=== PATIENT | female | born 1960 | race Caucasian/White ===

== ENCOUNTER 2019-08-06 15:58 | Inpatient (IN) ==
[2019-08-06] MEDS ORDERED: ZOFRAN INJ 4 MG VIAL IVP PRN (16:54)
[2019-08-06 17:13] VITALS: BMI 27.4
[2019-08-06] MEDS ORDERED: PREVNAR 13 IM ONE (17:13)
[2019-08-06] MEDS ORDERED: AFLURIA II4 or FLUARIX II4 IM ONE (17:13)
[2019-08-06] MEDS ORDERED: ROCEPHIN VIAL 1 GRAM ONE (18:05)
[2019-08-06] MEDS ORDERED: NS 100 ML IV + SPIKE MINIBAG* 100 ML IV ONE (18:05)
[2019-08-06] MEDS ORDERED: NS 1000 ML 1,000 ML ONE (18:05)
[2019-08-06 18:18] LABS: BILIRUBIN,URINE NEGATIVE (NEGATIVE); BLOOD/HEMOGLOBIN,URINE NEGATIVE (NEGATIVE); GLUCOSE, URINE 2+ (NEGATIVE); KETONES,URINE 1+ (NEGATIVE); LEUKOCYTE ESTERASE ,URINE NEGATIVE (NEGATIVE); NITRITES,URINE NEGATIVE (NEGATIVE); PROTEIN,URINE 1+ (NEGATIVE); UROBILINOGEN,URINE NORMAL (NORMAL)
[2019-08-06] MEDS: ROCEPHIN VIAL 1 GRAM 1 G in NS 100 ML IV + SPIKE MINIBAG* 100 ML IV SCH (18:19)
[2019-08-06] MEDS: NS 1000 ML 1,000 ML IV SCH (18:19)
[2019-08-06 18:37] LABS: APPEARANCE,URINE SLIGHTLY HAZY (CLEAR); COLOR,URINE YELLOW (YELLOW); RBC,URINE NONE SEEN /HPF (0-3); SQUAMOUS EPITHELIAL CELL,UR RARE /HPF (NEGATIVE)
--- NOTE | 2019-08-06 18:37 | DR.H&P ---
H&P - History & Physical for Day of: H&P Date: 08/06/19 - Chief Complaint Chief Complaint: severe weakness, fatigue, "high blood sugar" - History of Present Illness History of Present Illness: PT IS 59 WF DIRECT ADMIT FROM DR PARR OFFICE W ITH FEVER 102, CO SEVERE FATIGUE AND MUSCLE ACHES, WEAKNESS. PT PRESENTED TO OFFICE NEW PT FOR BLOOD SUGAR CONTROL. PT BS IN OFFICE 300. PT HAD HX OF BREAST CANCER AND IS CURRENTLY ON CHEMO, DUE FOR NEXT DOSE TOMORROW. PT HAS HX OF HTN, DM. PT DENIES ANY KNOWN FEVER, CCC. PT DENIES ANY CARDIAC HISTORY. PT ADMITTED FOR TREATMENT OF SEPSIS, R/O COVID. - Past Medical History Past Medical History: Arthritis, Diabetes, Hypertension Additional Medical History: BREAST CANCER - Past Surgical History Surgical History: Mastectomy (LEFT 2019) - Family History Family Medical History: Diabetes Mellitus, Cancer - Social History Does patient currently use any type of tobacco product: No Have you used tobacco products in the last 12 months: No Type of Tobacco Use: None Does any household member use tobacco: No Alcohol Use: None Drug Use: None - Medications Home Medications: No Known Drug Allergies [NKDA] Allergy (Verified 08/06/19 18:03) - Review of Systems Constitutional: Weakness, Malaise Eyes: No Symptoms Reported ENT: No Symptoms Reported Respiratory: No Symptoms Reported Cardiovascular: denies: Chest Pain, Edema Gastrointestinal: Nausea Genitourinary: No Symptoms Reported Musculoskeletal: Back Pain, Leg Pain Skin: No Symptoms Reported Neurological: Weakness Oriented: Normal Eyes: Normal Ear: Normal Nose: Normal Throat: Normal Respiratory: RLL Diminished, LLL Diminished Cardiovascular: Tachycardia. negative: Edema : Normal Auscultation: Bowel Sounds: Normal Palpation: Normal Tenderness: Normal Skin: Decreased Turgur Musculoskeletal: Normal Psychiatric: Anxiety Affect: Anxious Speech Pattern: Clear, Appropriate - Assessment/Plan (1) Sepsis Status: Acute Plan: ADMIT, COVID 19 ON ADMISSION. BLOOD,URINE CULTURE ON ADMISSION. ADMISSION LABS CBC CMP UA, MAG, ANEMIA PANEL. CXR ON ADMISSION, BS CONTROL. VERIFY HOME MEDICATION, IV HYDRATION, BP CONTROL. CARDIAC MONITORING, LACTIC ACID (2) Hyperglycemia Status: Acute (3) Hypertension Status: Acute (4) Fever Status: Acute (5) Dehydration Status: Acute - Allergies Allergies/Adverse Reactions: Allergies Allergy/AdvReac Type Severity Reaction Status Date / Time No Known Drug Allergies Allergy Verified 08/06/19 18:03 [NKDA]
[2019-08-06 18:38] LABS: BACTERIA,URINE NEGATIVE /HPF (NEGATIVE)
[2019-08-06] MEDS ORDERED: TYLENOL 325 MG TAB PO ONE (18:44)
[2019-08-06] MEDS: TYLENOL 325 MG TAB PO PRN (18:45)
--- NOTE | 2019-08-06 19:02 | RAD ---
HISTORYFEVER, WHEEZINGSTUDYCHEST, 1 VIEWCOMPARISONNoneFINDINGSThe heart is normal. The pulmonary vessels are normal. There is a right Port-A-Cath in place the tip in the distal superior vena cava. No consolidation or effusion is seen. The bones are intact.IMPRESSIONStatus post right Port-A-Cath placement in good position with no acute cardiopulmonary abnormality.Electronically signed by: PB YU (Aug 06, 2019 19:00:42)
[2019-08-06 19:14] LABS: BASOPHILS % (AUTO) 0.8 % (0.2-1.0); EOSINOPHILS % (AUTO) 0.1 % (0.9-2.9); HEMOGLOBIN 13.7 g/dL (12.0-16.0); LYMPHOCYTES # (AUTO) 1.2 X10^3/uL (1.3-2.9); LYMPHOCYTES % (AUTO) 25.3 % (21.0-51.0); MEAN CORPUSCULAR HEMOGLOBIN 31.4 pg (27.0-34.0); MEAN CORPUSCULAR VOLUME 89.5 fL (80.0-100.0); MEAN PLATELET VOLUME 7.7 fL (7.4-11.0); MONOCYTES # (AUTO) 0.2 x10^3/uL (0.3-0.8); NEUTROPHILS # (AUTO) 3.4 x10^3/uL (2.2-4.8); NEUTROPHILS % (AUTO) 69.8 % (42.0-75.0); PLATELET COUNT 247 X10^3/uL (150.0-450.0); RED BLOOD COUNT 4.36 X10^6/uL (3.5-5.4); RED CELL DISTRIBUTION WIDTH 16.2 % (11.6-16.5); WHITE BLOOD COUNT 4.8 X10^3/uL (3.6-10.0)
[2019-08-06 19:21] LABS: BLOOD UREA NITROGEN 22 mg/dL (7-18); CALCIUM 8.9 mg/dL (8.5-10.1); CARBON DIOXIDE 24.9 mmol/L (21-32); CHLORIDE 86 mmol/L (98-107); COR NA(FOR HYPERGLY) 125 mmol/L (136-145); CREATININE 1.04 mg/dL (0.55-1.02); eGFR NON BLACK RACES 58 (>60)
[2019-08-06 19:26] LABS: ALBUMIN 3.3 g/dL (3.4-5.0); ALKALINE PHOSPHATASE 114 Units/L (46-116); COR CA(FOR HYPOALB) 9.5 mg/dL (8.5-10.1); TOTAL PROTEIN 7.7 g/dL (6.4-8.2)
[2019-08-06 19:38] LABS: ALANINE AMINOTRANSFERASE 45 Units/L (12-78); ASPARTATE AMINO TRANSFERASE 47 Units/L (15-37); SODIUM 121 mmol/L (136-145)
[2019-08-06 19:55] LABS: IRON 29 ug/dL (50-175)
[2019-08-06] MEDS: REQUIP PO SCH (20:00)
[2019-08-06] MEDS: SNACK - Diabetic Appropriate PO SCH (20:10)
[2019-08-06] MEDS: HumuLIN R SUBCUT PRN (20:10)
[2019-08-06 20:24] LABS: LACTIC ACID < 0.2 mmol/L (0.4-2.0)
[2019-08-06] MEDS ORDERED: NS 250 ML IV 250 ML IV ONE (20:30)
[2019-08-06 21:14] LABS: CKMB % 1.6 % (<4); CREATINE KINASE 61 Units/L (26-192); CREATINE KINASE MB < 1.0 ng/mL (0-4.0); TROPONIN I < 0.02 ng/mL (0-1.5)
[2019-08-07] MEDS: NS 1000 ML 1,000 ML IV SCH ×3 (04:55→21:38)
[2019-08-07] MEDS: TYLENOL 325 MG TAB PO PRN ×2 (04:56→11:49)
[2019-08-07 05:38] LABS: BASOPHILS % (AUTO) 0.4 % (0.2-1.0); HEMATOCRIT 33.2 % (36.0-47.0); LYMPHOCYTES # (AUTO) 1.1 X10^3/uL (1.3-2.9); LYMPHOCYTES % (AUTO) 22.1 % (21.0-51.0); MEAN CORPUSCULAR HEMOGLOBIN 30.9 pg (27.0-34.0); MEAN CORPUSCULAR HGB CONC 34.3 g/dL (33.0-35.0); MEAN PLATELET VOLUME 7.8 fL (7.4-11.0); MONOCYTES # (AUTO) 0.3 x10^3/uL (0.3-0.8); MONOCYTES % (AUTO) 5.5 % (0.0-13.0); NEUTROPHILS # (AUTO) 3.5 x10^3/uL (2.2-4.8); PLATELET COUNT 238 X10^3/uL (150.0-450.0); RED BLOOD COUNT 3.69 X10^6/uL (3.5-5.4); RED CELL DISTRIBUTION WIDTH 16.3 % (11.6-16.5); WHITE BLOOD COUNT 4.9 X10^3/uL (3.6-10.0)
[2019-08-07 05:48] LABS: HEMOGLOBIN 11.4 g/dL (12.0-16.0)
[2019-08-07] MEDS: HumuLIN R SUBCUT PRN ×4 (05:48→21:55)
[2019-08-07 05:54] LABS: ALANINE AMINOTRANSFERASE 36 Units/L (12-78); ALBUMIN 2.7 g/dL (3.4-5.0); ALKALINE PHOSPHATASE 87 Units/L (46-116); BLOOD UREA NITROGEN 13 mg/dL (7-18); CHLORIDE 91 mmol/L (98-107); COR NA(FOR HYPERGLY) 128 mmol/L (136-145); CREATININE 0.77 mg/dL (0.55-1.02); TOTAL PROTEIN 6.5 g/dL (6.4-8.2); eGFR NON BLACK RACES > 60 (>60)
[2019-08-07 06:26] LABS: ASPARTATE AMINO TRANSFERASE 34 Units/L (15-37); SODIUM 124 mmol/L (136-145)
[2019-08-07] MEDS: LOVENOX INJ 40 MG SYR SC SCH (08:50)
[2019-08-07] MEDS: ROCEPHIN VIAL 1 GRAM 1 G in NS 100 ML IV + SPIKE MINIBAG* 100 ML IV SCH (08:51)
[2019-08-07] MEDS: ZESTRIL TAB 10 MG PO SCH (08:51)
--- NOTE | 2019-08-07 12:41 | CT ---
HISTORYWheezingSTUDYCTA chest with contrast for pulmonary embolusTechnique: Axial post-contrast images with coronal and sagittal reformats. Dose reduction procedures were used with mA/kv adjusted for body size.COMPARISONNoneFINDINGSThere is no evidence for acute pulmonary thromboembolic disease. Examination of the mediastinum demonstrated no definite evidence for mediastinal masses. No enlarged mediastinal adenopathy is identified. There is an enlarged left hilar lymph node measuring 1.8 by 1.8 cm. There is a prominent but not grossly enlarged sub carinal lymph node measuring 10.7 x 14.5 mm. No aortic abnormality is identified. No pleural effusions are identified. No chest wall or axillary abnormality is identified. Those portions of the upper abdominal organs visualized were within normal limits with the exception of cholelithiasis. Examination of the lung lemos demonstrated an irregular 7.2 mm left upper lobe pulmonary nodule best visualized on CT series 4, image 29. This is suspicious for a primary lung neoplasm with possible left hilar and sub carinal metastatic jose involvement. PET-CT will be required for further evaluation. Additionally there are scattered predominantly peripheral ground-glass infiltrates involving all lung lemos and demonstrating some pleural sparing. Findings are suspicious for developing COVID-19 lung involvement. Multifocal pneumonia of other origin such as bacterial or atypical not excluded. No bronchiectasis or peribronchial thickening is identified.IMPRESSIONNo evidence for acute pulmonary thromboembolic disease7.2 mm irregular left upper lobe pulmonary nodule suspicious for primary lung neoplasm. PET-CT would be required for further evaluation.Abnormal left hilar and sub carinal lymph nodes possibly metastatic in originScattered predominantly peripheral upper and lower lobe ground-glass infiltrates suspicious for developing COVID-19 lung involvement.Electronically signed by: PETER OSHEA (Aug 07, 2019 12:36:52)
[2019-08-07] MEDS: VENTOLIN or PROAIR HFA IN SCH ×3 (13:42→20:30)
[2019-08-07 14:02] LABS: ABG ALLEN TEST POS; ABG BASE EXCESS 2.8 mmol/L (-2.0-2.0); ABG HCO3 26.1 mmol/L (22-26)
[2019-08-07] MEDS ORDERED: ROBITUSSIN DM ONE (14:18)
[2019-08-07] MEDS ORDERED: NS 250 ML IV 250 ML IV ONE (14:18)
[2019-08-07] MEDS ORDERED: NS 100 ML IV 100 ML IV ONE (14:18)
[2019-08-07] MEDS ORDERED: ZITHROMAX INJ 500 MG VIAL IV ONE (14:19)
[2019-08-07] MEDS ORDERED: ZOSYN VIAL 3.375 GRAMS IV ONE (14:19)
[2019-08-07] MEDS: ZITHROMAX INJ 500 MG VIAL 500 MG in NS 250 ML IV 250 ML IV SCH (14:44)
[2019-08-07] MEDS: ROBITUSSIN DM PO SCH ×3 (14:44→21:38)
[2019-08-07] MEDS: ZOSYN VIAL 3.375 GRAMS 3.375 G in NS 100 ML IV + SPIKE MINIBAG* 100 ML IV SCH ×3 (16:38→22:07)
[2019-08-07] MEDS: SNACK - Diabetic Appropriate PO SCH (21:38)
[2019-08-07] MEDS: REQUIP PO SCH (21:55)
[2019-08-08 05:45] LABS: BASOPHILS % (AUTO) 0.4 % (0.2-1.0); HEMATOCRIT 36.1 % (36.0-47.0); HEMOGLOBIN 12.2 g/dL (12.0-16.0); LYMPHOCYTES # (AUTO) 0.8 X10^3/uL (1.3-2.9); LYMPHOCYTES % (AUTO) 18.8 % (21.0-51.0); MEAN CORPUSCULAR HEMOGLOBIN 30.6 pg (27.0-34.0); MEAN CORPUSCULAR HGB CONC 33.9 g/dL (33.0-35.0); MEAN CORPUSCULAR VOLUME 90.4 fL (80.0-100.0); MEAN PLATELET VOLUME 7.6 fL (7.4-11.0); MONOCYTES # (AUTO) 0.3 x10^3/uL (0.3-0.8); MONOCYTES % (AUTO) 5.6 % (0.0-13.0); NEUTROPHILS # (AUTO) 3.4 x10^3/uL (2.2-4.8); NEUTROPHILS % (AUTO) 75.2 % (42.0-75.0); PLATELET COUNT 288 X10^3/uL (150.0-450.0); RED CELL DISTRIBUTION WIDTH 16.2 % (11.6-16.5); WHITE BLOOD COUNT 4.5 X10^3/uL (3.6-10.0)
[2019-08-08] MEDS: ZOSYN VIAL 3.375 GRAMS 3.375 G in NS 100 ML IV + SPIKE MINIBAG* 100 ML IV SCH ×2 (05:55→14:27)
[2019-08-08 06:02] LABS: ALANINE AMINOTRANSFERASE 37 Units/L (12-78); ALBUMIN 2.9 g/dL (3.4-5.0); ALKALINE PHOSPHATASE 95 Units/L (46-116); ASPARTATE AMINO TRANSFERASE 36 Units/L (15-37); BLOOD UREA NITROGEN 6 mg/dL (7-18); CALCIUM 8.5 mg/dL (8.5-10.1); CARBON DIOXIDE 26.4 mmol/L (21-32); CHLORIDE 94 mmol/L (98-107); COR CA(FOR HYPOALB) 9.4 mg/dL (8.5-10.1); COR NA(FOR HYPERGLY) 132 mmol/L (136-145); SODIUM 129 mmol/L (136-145); TOTAL PROTEIN 7.1 g/dL (6.4-8.2); eGFR NON BLACK RACES > 60 (>60)
[2019-08-08 08:33] LABS: ABG ALLEN TEST POS; ABG BASE EXCESS 2.1 mmol/L (-2.0-2.0); ABG HCO3 25.1 mmol/L (22-26); FRACTIONATED INSPIRED OXYGEN 21
[2019-08-08] MEDS: VENTOLIN or PROAIR HFA IN SCH ×4 (08:34→20:15)
[2019-08-08] MEDS: LOVENOX INJ 40 MG SYR SC SCH (08:58)
[2019-08-08] MEDS: ZESTRIL TAB 10 MG PO SCH (08:58)
[2019-08-08] MEDS: ROBITUSSIN DM PO SCH ×4 (08:58→20:15)
[2019-08-08] MEDS: TYLENOL 325 MG TAB PO PRN ×2 (08:59→19:40)
[2019-08-08] MEDS: ZITHROMAX INJ 500 MG VIAL 500 MG in NS 250 ML IV 250 ML IV SCH (08:59)
[2019-08-08] MEDS: HumuLIN R SUBCUT PRN ×3 (11:37→20:16)
--- NOTE | 2019-08-08 12:33 | RAD ---
HISTORYSOBSTUDYAP [id number]/15/2020FINDINGSContinued normal heart size with clear lungs and pleural spaces. Sta ble position of right IJ injection port terminating in the right atrium.IMPRESSIONNo interval change or acute chest abnormality identified. Left upper lobe pulmonary nodule described on recent chest CT is not seen.Electronically signed by: LISETH BOWERS (Aug 08, 2019 12:31:51)
[2019-08-08] MEDS: NS 1000 ML 1,000 ML IV SCH (15:47)
[2019-08-08] MEDS ORDERED: POTASSIUM CHL 40 MEQ/NS 0.45% 500 ML IV PRN (18:29)
[2019-08-08] MEDS ORDERED: MICRO K EXTEN CAP 10 MEQ PO PRN (18:29)
[2019-08-08] MEDS ORDERED: POTASSIUM CHLORIDE LIQ 20 MEQ UDC PO PRN (18:29)
[2019-08-08] MEDS ORDERED: K-RIDER 10 MEQ/NS 100 ML 10 MEQ/100 ML BAG IV PRN (18:29)
[2019-08-08] MEDS ORDERED: KLOR-CON PO PRN (18:29)
[2019-08-08] MEDS ORDERED: POTASSIUM CHL 60 MEQ/NS 0.45% 500 ML IV PRN (18:29)
[2019-08-08] MEDS ORDERED: K-DUR TAB 20 MEQ PO ONE (18:33)
[2019-08-08] MEDS: K-DUR TAB 20 MEQ PO PRN (18:36)
[2019-08-08] MEDS: REQUIP PO SCH (20:15)
[2019-08-08] MEDS: SNACK - Diabetic Appropriate PO SCH (20:15)
[2019-08-08] MEDS: MAGNESIUM SULFATE 1 GRAM/100 mL PREMIX 1 GM/100 ML BAG IV PRN ×2 (21:35→22:39)
[2019-08-09] MEDS: ZOSYN VIAL 3.375 GRAMS 3.375 G in NS 100 ML IV + SPIKE MINIBAG* 100 ML IV SCH ×4 (00:01→22:09)
[2019-08-09] MEDS: TYLENOL 325 MG TAB PO PRN (05:10)
[2019-08-09 05:18] LABS: BASOPHILS % (AUTO) 0.5 % (0.2-1.0); EOSINOPHILS % (AUTO) 0.3 % (0.9-2.9); HEMOGLOBIN 10.5 g/dL (12.0-16.0); LYMPHOCYTES # (AUTO) 0.9 X10^3/uL (1.3-2.9); LYMPHOCYTES % (AUTO) 17.8 % (21.0-51.0); MEAN CORPUSCULAR HEMOGLOBIN 30.7 pg (27.0-34.0); MEAN CORPUSCULAR VOLUME 90.2 fL (80.0-100.0); MEAN PLATELET VOLUME 7.1 fL (7.4-11.0); MONOCYTES # (AUTO) 0.3 x10^3/uL (0.3-0.8); MONOCYTES % (AUTO) 6.5 % (0.0-13.0); NEUTROPHILS # (AUTO) 3.9 x10^3/uL (2.2-4.8); NEUTROPHILS % (AUTO) 74.9 % (42.0-75.0); PLATELET COUNT 313 X10^3/uL (150.0-450.0); RED BLOOD COUNT 3.44 X10^6/uL (3.5-5.4); RED CELL DISTRIBUTION WIDTH 15.9 % (11.6-16.5); WHITE BLOOD COUNT 5.2 X10^3/uL (3.6-10.0)
[2019-08-09] MEDS: NS 1000 ML 1,000 ML IV SCH ×2 (05:23→15:57)
[2019-08-09 05:42] LABS: ALANINE AMINOTRANSFERASE 32 Units/L (12-78); ALBUMIN 2.5 g/dL (3.4-5.0); ALKALINE PHOSPHATASE 89 Units/L (46-116); ASPARTATE AMINO TRANSFERASE 32 Units/L (15-37); BLOOD UREA NITROGEN 6 mg/dL (7-18); CALCIUM 8.2 mg/dL (8.5-10.1); CHLORIDE 96 mmol/L (98-107); COR CA(FOR HYPOALB) 9.4 mg/dL (8.5-10.1); COR NA(FOR HYPERGLY) 133 mmol/L (136-145); CREATININE 0.63 mg/dL (0.55-1.02); MAGNESIUM 1.9 mg/dL (1.7-2.9); SODIUM 130 mmol/L (136-145); TOTAL PROTEIN 6.6 g/dL (6.4-8.2); eGFR NON BLACK RACES > 60 (>60)
[2019-08-09] MEDS: HumuLIN R SUBCUT PRN ×4 (05:49→22:10)
[2019-08-09] MEDS: K-DUR TAB 20 MEQ PO PRN (06:10)
[2019-08-09] MEDS: VENTOLIN or PROAIR HFA IN SCH ×3 (09:47→17:00)
[2019-08-09] MEDS: ROBITUSSIN DM PO SCH ×4 (09:51→22:09)
[2019-08-09] MEDS: ZITHROMAX INJ 500 MG VIAL 500 MG in NS 250 ML IV 250 ML IV SCH (09:51)
[2019-08-09] MEDS: LOVENOX INJ 40 MG SYR SC SCH (09:52)
[2019-08-09] MEDS: ZESTRIL TAB 10 MG PO SCH (09:52)
[2019-08-09 09:54] LABS: ABG BASE EXCESS 2.1 mmol/L (-2.0-2.0); ABG HCO3 25.1 mmol/L (22-26)
[2019-08-09] MEDS: MAGNESIUM SULFATE 1 GRAM/100 mL PREMIX 1 GM/100 ML BAG IV PRN ×2 (18:10→20:22)
[2019-08-09] MEDS ORDERED: SNACK - Diabetic Appropriate PO SCH (20:00)
[2019-08-09] MEDS ORDERED: LEVEMIR SC ONE (20:07)
[2019-08-09] MEDS ORDERED: LEVEMIR SC SCH (21:00)
[2019-08-09] MEDS: SNACK - Diabetic Appropriate PO SCH (22:07)
[2019-08-09] MEDS: REQUIP PO SCH (22:09)
[2019-08-10] MEDS: NS 1000 ML 1,000 ML IV SCH (05:01)
[2019-08-10 05:26] LABS: ABG ALLEN TEST POS; ABG BASE EXCESS 1.9 mmol/L (-2.0-2.0); ABG HCO3 25.6 mmol/L (22-26)
[2019-08-10 05:44] LABS: ALANINE AMINOTRANSFERASE 36 Units/L (12-78); ALBUMIN 2.6 g/dL (3.4-5.0); ALKALINE PHOSPHATASE 102 Units/L (46-116); ASPARTATE AMINO TRANSFERASE 39 Units/L (15-37); BLOOD UREA NITROGEN 6 mg/dL (7-18); CALCIUM 8.3 mg/dL (8.5-10.1); CARBON DIOXIDE 27.1 mmol/L (21-32); CHLORIDE 99 mmol/L (98-107); COR CA(FOR HYPOALB) 9.4 mg/dL (8.5-10.1); COR NA(FOR HYPERGLY) 137 mmol/L (136-145); CREATININE 0.65 mg/dL (0.55-1.02); SODIUM 135 mmol/L (136-145); TOTAL PROTEIN 6.6 g/dL (6.4-8.2); eGFR NON BLACK RACES > 60 (>60)
--- NOTE | 2019-08-10 05:49 | RAD ---
Chest AP portableIndication: Pneumonia. Pearson virus infection possibleCOMPARISONPrevious day's radiograph and August 07, 2019 CT chestFINDINGSPeripheral patchy pulmonary opacities appear more conspicuous than on the prior. There is no pneumothorax or large effusion. Port-A-Cath tip is over the SVC. Heart size is prominent.IMPRESSION1. Patchy pulmonary opacity appears slightly more conspicuous and peripherally located, suggesting pearson virus infection and viral pneumonitis. Other etiologies not excluded.2. No pneumothorax.Electronically signed by: MARCELINA HOOD (Aug 10, 2019 05:47:36)
[2019-08-10] MEDS: ZOSYN VIAL 3.375 GRAMS 3.375 G in NS 100 ML IV + SPIKE MINIBAG* 100 ML IV SCH ×2 (05:57→15:07)
[2019-08-10] MEDS: HumuLIN R SUBCUT PRN ×3 (05:58→13:28)
[2019-08-10] MEDS: VENTOLIN or PROAIR HFA IN SCH ×2 (06:00→13:00)
[2019-08-10 07:01] LABS: BASOPHILS % (AUTO) 0.5 % (0.2-1.0); EOSINOPHILS # (AUTO) 0.1 x10^3/uL (0.0-0.2); EOSINOPHILS % (AUTO) 2.1 % (0.9-2.9); HEMATOCRIT 30.2 % (36.0-47.0); HEMOGLOBIN 10.2 g/dL (12.0-16.0); LYMPHOCYTES # (AUTO) 1.1 X10^3/uL (1.3-2.9); LYMPHOCYTES % (AUTO) 24.4 % (21.0-51.0); MEAN CORPUSCULAR HEMOGLOBIN 30.5 pg (27.0-34.0); MEAN CORPUSCULAR HGB CONC 33.7 g/dL (33.0-35.0); MEAN CORPUSCULAR VOLUME 90.5 fL (80.0-100.0); MEAN PLATELET VOLUME 7.1 fL (7.4-11.0); MONOCYTES # (AUTO) 0.4 x10^3/uL (0.3-0.8); MONOCYTES % (AUTO) 9.3 % (0.0-13.0); NEUTROPHILS % (AUTO) 63.7 % (42.0-75.0); PLATELET COUNT 389 X10^3/uL (150.0-450.0); RED BLOOD COUNT 3.34 X10^6/uL (3.5-5.4); RED CELL DISTRIBUTION WIDTH 15.5 % (11.6-16.5); WHITE BLOOD COUNT 4.6 X10^3/uL (3.6-10.0)
[2019-08-10 07:02] LABS: ERYTHROCYTE SEDIMENTATION RATE 111 MM/HOUR (0-20)
[2019-08-10] MEDS ORDERED: ZESTRIL TAB 20 MG PO SCH (09:00)
[2019-08-10] MEDS ORDERED: ZESTRIL TAB 20 MG ONE (09:09)
[2019-08-10] MEDS: ROBITUSSIN DM PO SCH ×2 (09:10→13:00)
[2019-08-10] MEDS: ZITHROMAX INJ 500 MG VIAL 500 MG in NS 250 ML IV 250 ML IV SCH (09:11)
[2019-08-10] MEDS: K-DUR TAB 20 MEQ PO PRN (09:12)
[2019-08-10] MEDS: TYLENOL 325 MG TAB PO PRN (09:13)
[2019-08-10] MEDS: MAGNESIUM SULFATE 1 GRAM/100 mL PREMIX 1 GM/100 ML BAG IV PRN ×2 (09:32→12:30)
[2019-08-10] MEDS: LOVENOX INJ 40 MG SYR SC SCH (09:48)
[2019-08-10] MEDS ORDERED: REMDESIVIR (INVESTIGATIONAL DRUG GS-5734) 200 MG in NS 250 ML IV 250 ML IV ONE (11:00)
[2019-08-10 12:04] VITALS: BP 156/77
[2019-08-11] MEDS ORDERED: REMDESIVIR (INVESTIGATIONAL DRUG GS-5734) 100 MG in NS 250 ML IV 250 ML IV SCH (09:00)
== END 2019-08-10 15:45 | disposition home or self-care (01) | DRG 871 ==
LOC: MED/SURG → OBSVTOIN 16:15
PROVIDERS: ADMIT Internal Medicine; ATTEND Internal Medicine
DX: E11.65 Type 2 diabetes mellitus with hyperglycemia; N39.0 Urinary tract infection, site not specified; Z92.21 Personal history of antineoplastic chemotherapy; E86.0 Dehydration; Z11.59 Encounter for screening for other viral diseases; R50.9 Fever, unspecified; J18.8 Other pneumonia, unspecified organism; I10 Essential (primary) hypertension; C50.112 Malignant neoplasm of central portion of left female breast; R91.8 Other nonspecific abnormal finding of lung field; A41.89 Other specified sepsis; E87.1 Hypo-osmolality and hyponatremia; Z90.12 Acquired absence of left breast and nipple
CPT/HCPCS: 36415; 36600; 71010; 71045; 71275; 80053; 81001; 82550; 82553; 82607; 82728; 82746; 82803; 83540; 83605; 83735; 84466; 84484; 85025; 85378; 85652; 86140; 87040; 87086; 94640; A4222; J0456; J0696; J1650; J1815; J2405; J2543; J3475; J3490; J7030; J7050